=== PATIENT | female | born 1965 | race Caucasian/White ===

== ENCOUNTER → 2021-07-04 13:29 | Outpatient (REF) | payer OTHER, SELFPAY | LOC: HO.SL 13:29 | PROVIDERS: PCP Internal Medicine; Visit Provider Psychiatry & Neurology Neurology | DX: Z13.89 Encounter for screening for other disorder (principal) ==

== ENCOUNTER → 2021-08-01 09:44 | Outpatient (BNVA) | payer OTHER, SELFPAY | PROVIDERS: PCP Internal Medicine; Visit Provider Psychiatry & Neurology Neurology | DX: G44.309 Post-traumatic headache, unspecified, not intractable (principal); G47.9 Sleep disorder, unspecified | CPT/HCPCS: 99212 ==

== ENCOUNTER → 2021-09-26 13:46 | Outpatient (BNVA) | payer OTHER, SELFPAY | PROVIDERS: PCP Internal Medicine; Visit Provider Psychiatry & Neurology Neurology | DX: F07.81 Postconcussional syndrome (principal); G43.909 Migraine, unspecified, not intractable, without status migrainosus; G47.19 Other hypersomnia; R06.83 Snoring | CPT/HCPCS: 99212 ==

== ENCOUNTER → 2021-11-16 10:52 | Outpatient (REF) | payer OTHER, SELFPAY | LOC: HO.SL 10:52 | PROVIDERS: PCP Internal Medicine; Visit Provider Psychiatry & Neurology Neurology | DX: G47.33 Obstructive sleep apnea (adult) (pediatric) (principal); G47.00 Insomnia, unspecified; G47.19 Other hypersomnia; R06.83 Snoring | CPT/HCPCS: 95806 ==

== ENCOUNTER 2021-12-20 09:48 | Outpatient (REF) | payer OTHER, SELFPAY ==
[2021-12-20 10:42] LABS: COVID-19 Test Positive (Negative); IDNOW Serial# 16C4AD1C
== END 2021-12-20 09:49 | disposition home or self-care (01) ==
LOC: HO.LAB 09:48
PROVIDERS: Visit Provider Internal Medicine
DX: Z20.822 Contact with and (suspected) exposure to COVID-19 (principal)
CPT/HCPCS: 87635; C9803

== ENCOUNTER 2021-12-28 07:41 | Outpatient (REF) | payer OTHER, SELFPAY ==
[2021-12-28 08:14] LABS: COVID-19 Test Positive (Negative); IDNOW Serial# 08D9AD1C
== END 2021-12-28 07:42 | disposition home or self-care (01) ==
LOC: HO.LAB 07:41
PROVIDERS: Visit Provider Internal Medicine
DX: Z20.822 Contact with and (suspected) exposure to COVID-19 (principal)
CPT/HCPCS: 87635; C9803

== ENCOUNTER 2022-01-10 13:01 | Outpatient (REF) | payer OTHER, SELFPAY ==
[2022-01-10 13:32] LABS: COVID-19 Test Negative (Negative); IDNOW Serial# 08D9AD1C
== END 2022-01-10 13:02 | disposition home or self-care (01) ==
LOC: HO.LAB 13:01
PROVIDERS: Visit Provider Internal Medicine
DX: Z20.822 Contact with and (suspected) exposure to COVID-19 (principal)
CPT/HCPCS: 87635; C9803

== ENCOUNTER → 2022-01-23 13:53 | Outpatient (BNVA) | payer OTHER, SELFPAY | PROVIDERS: PCP Internal Medicine; Visit Provider Nurse Practitioner Family | DX: G47.19 Other hypersomnia (principal); G47.33 Obstructive sleep apnea (adult) (pediatric) | CPT/HCPCS: 99212 ==

== ENCOUNTER 2022-02-06 07:53 | Outpatient (REF) | payer OTHER, SELFPAY ==
[2022-02-06 08:44] LABS: COVID-19 Test Negative (Negative)
== END 2022-02-06 07:54 | disposition home or self-care (01) ==
LOC: HO.LAB 07:53
PROVIDERS: Visit Provider Internal Medicine
DX: Z20.822 Contact with and (suspected) exposure to COVID-19 (principal)
CPT/HCPCS: 87635; C9803

== ENCOUNTER 2022-02-13 07:36 | Outpatient (REF) | payer OTHER, SELFPAY ==
[2022-02-13 08:09] LABS: COVID-19 Test Negative (Negative); IDNOW Serial# 16C4AD1C
== END 2022-02-13 07:37 | disposition home or self-care (01) ==
LOC: HO.LAB 07:36
PROVIDERS: Visit Provider Internal Medicine
DX: Z20.822 Contact with and (suspected) exposure to COVID-19 (principal)
CPT/HCPCS: 87635; C9803

== ENCOUNTER 2022-07-20 12:05 | Outpatient (REF) | payer OTHER, SELFPAY ==
[2022-07-20 12:37] LABS: COVID-19 Test Negative (Negative); IDNOW Serial# 16C4AD1C
== END 2022-07-20 12:06 | disposition home or self-care (01) ==
LOC: HO.LAB 12:05
PROVIDERS: Visit Provider Internal Medicine
DX: Z20.822 Contact with and (suspected) exposure to COVID-19 (principal)
CPT/HCPCS: 87635; C9803

== ENCOUNTER → 2022-07-26 13:13 | Outpatient (BNVA) | payer OTHER, SELFPAY | PROVIDERS: PCP Internal Medicine; Visit Provider Nurse Practitioner Family | DX: G47.33 Obstructive sleep apnea (adult) (pediatric) (principal); G47.19 Other hypersomnia | CPT/HCPCS: 99212 ==

== ENCOUNTER → 2022-10-25 13:52 | Outpatient (BNVA) | payer OTHER, SELFPAY | PROVIDERS: PCP Internal Medicine; Visit Provider Nurse Practitioner Family | DX: G47.33 Obstructive sleep apnea (adult) (pediatric) (principal); Z99.89 Dependence on other enabling machines and devices | CPT/HCPCS: 99212 ==

== ENCOUNTER 2024-03-06 12:38 | Outpatient (AMB) | payer OTHER, SELFPAY ==
--- NOTE | 2024-03-06 12:41 | A.OFFVIS_ITS ---
Vital Signs 03/06/24 12:45 Height 4 ft 11 in Weight 165 lb 4 oz BMI 33.4 BP 148/90 H Blood Pressure Location Rt brachial Position Sitting Respiration 16 Pulse 87 Pulse Source Pulse Oximeter Pulse Oximetry (%) 98 Oxygen Delivery Method Room Air Intake Visit Reasons: 1yr follow up sleep Intake Note: Pt presents for a 6 month follow up for JERONIMO. Networking Administrator Required: No Allergies No Known Allergies Allergy (Verified 03/06/24 12:41) HPI Comments Details: 58 y/o female patient presents for follow up of JERONIMO on CPAP. . Pt is on APAP [id number]. I was unable to obtain her complaince report today She says she is compliant and feel good She sleeps well with CPAP, wakes up refreshed. Pt states that she has more energy during the day. [facility] Medical History Head injury Post concussion syndrome Shortness of breath Diabetes Asthma delivery delivered Surgical History Hx of hernia repair H/O colonoscopy Family History Father HTN (hypertension) Mother CAD (coronary artery disease) Diabetes mellitus Cancer Family/Other Diabetes mellitus Thyroid disease Social History Alcohol intake: never Patient Tobacco Use Status: Never used Tobacco Physical Exam Vital Signs: Last Vital Signs Pulse 87 03/06/24 12:45 Resp 16 03/06/24 12:45 BP 148/90 H 03/06/24 12:45 Pulse Ox 98 03/06/24 12:45 Oxygen Delivery Method Room Air 03/06/24 12:45 BMI result Body Mass Index 33.4 Const General: cooperative, healthy appearing, comfortable and no acute distress Nutritional Appearance: average body habitus Orientation/consciousness: patient oriented x3 Eyes Pupils: Equal, round and reactive pupils present Neck Neck: Yes no meningeal signs Neuro General: patient oriented x3, gait normal, tone normal, moves all extremities, no meningeal signs, no focal motor deficits and CN's II-XI intact bilaterally Cranial nerves: Yes CN's II-XII intact bilaterally and Yes Equal, round and reactive pupils present Cognition (Neuro): normal cognition Gait exam (Neuro): Normal gait present Assessment & Plan Assessment & Plan (1) JERONIMO (obstructive sleep apnea): Comment: Mild degree of JERONIMO, the AHI was 7/hr, and oxygen lake was 83%. Code(s): G47.33 - Obstructive sleep apnea (adult) (pediatric) Category: Medical Plan Advised patient to continue to use APAP [id number] . compliance stressed She will call home care company about her therapy results. Coding Level of Care Code Est Pt Level 3 (53974) Diagnoses JERONIMO (obstructive sleep apnea) G47.33
[2024-03-06 12:45] VITALS: BP 148/90; PULSE 87; RESP 16; O2SAT 98; BMI 33.4
== END 2024-03-06 13:20 | disposition home or self-care (01) ==
PROVIDERS: Absent Provider Psychiatry & Neurology Neurology; Visit Provider Psychiatry & Neurology Neurology
DX: G47.33 Obstructive sleep apnea (adult) (pediatric) (principal)
CPT/HCPCS: 99213

== ENCOUNTER → 2024-03-06 12:38 | Outpatient (BNVA) | payer OTHER, SELFPAY | PROVIDERS: Absent Provider Psychiatry & Neurology Neurology; Visit Provider Psychiatry & Neurology Neurology | DX: G47.33 Obstructive sleep apnea (adult) (pediatric) (principal); Z99.89 Dependence on other enabling machines and devices | CPT/HCPCS: 99212 ==

== ENCOUNTER 2024-06-26 08:30 | Outpatient (REF) | payer OTHER, SELFPAY ==
--- OUTSIDE RECORDS SUMMARY | 2024-06-26 08:41 | XMS_ITS | Continuity of Care Document ---
Author Organization [facility] Adult [facility] Address [address] [place] [address]- Care Team Providers Care Records And Tape Recordings Engineer Name Role Phone Jackie Barnes DO Primary Care Physician [phone] Encounter [facility] Date(s): 05/26/24 - 06/25/24 [facility] [address] [place], [place] [phone] Encounter Type: Triage Allergies, Adverse Reactions, Alerts Substance Criticality Severity Reaction Reaction Severity Status Keflex lost her voice Activ e gadolinium containing compounds rash, shorttness of breath, Active Bee Stings Anaphylaxis Active Contrast Dye SOB, difficulty breathing Active Glutens Active Immunizations Given and Recorded Vaccine Date Status Refusal Reason influenza virus vaccine, inactivated 04/18/22 Give n influenza virus vaccine, inactivated 05/02/17 Give n influenza virus vaccine, inactivated 08/11/16 Give n influenza virus vaccine, inactivated 05/14/15 Give n influenza virus vaccine, inactivated 1 05/16/13 [facility] [place] influenza virus vaccine, inactivated 2 06/24/10 [facility] [place] SARS-CoV-2 (COVID-19) mRNA BNT-162b2 vac 08/02/21 Given SARS-CoV-2 (COVID-19) mRNA BNT-162b2 vac 12/05/20 Recorded SARS-CoV-2 (COVID-19) mRNA BNT-162b2 vac 11/01/20 Recorded tetanus/diphtheria/pertussis, acel(Tdap) 03/05/17 Given influ virus vac, H1N1, inactive(oldterm) 3 06/07/09 Given FluLaval (oldterm) 4 04/13/09 Given Pneumococcal Poly (PPV23) (oldterm) 5 04/08/08 Giv en Tet/Diphth/Acel, Pertussis (oldterm) 6 08/28/07 [facility] [place] Influenza Virus Vaccine (oldterm) 7 05/25/06 Given 1Admin Note: vis given 01/31/2013 2Admin Note: vis given vis date 02/15/2010 3Admin Note: VIS 04/09/09 4Admin Note: VIS GIVEN VIS DATE 02/16/09 5Admin Note: VIS given in Syrian 6Admin Note: VIS given in montserratian. Mfg = Sanofi Pasteur 7Admin Note: VIS GIVEN Medications Albuterol (Eqv-Ventolin HFA) 90 mcg/inh inhalation aerosol 2 puffs, Inhalation, Every 6 hours, every 6 hours as needed. Please use Symbicort as maintenance therapy and for symptom relief to decrease use of albuterol, # 8 Gm, 1 Refills, Maintenance, 06/09/24 3:43:00 PM EST, [facility]/pharmacy #[id number], Partial fill upon patient request if the prescription is for a schedule II opioid drug., 2 puffs Inhalation Every 6 hours,Instr:every 6 hours as needed. Please use Symbicort as maintenance therapy and for symptom relief to decrease use of albuterol, 150, cm, 06/03/24 15:31:00 EST, Height, 76.5, kg, 05/29/23 10:47:00 EST, Dry Weight Start Date: 06/09/24 Status: Ordered Quantity: 8.0 Unit: g Repeat number: 2 atorvastatin 40 mg oral tablet See Instructions, TOME 1 TABLETA POR VIA ORAL TODOS [place] AL ACOSTARSE, # 90 tablet, 2 Refills, Maintenance, 05/27/24 1:34:00 PM EST, [facility] STORE [id number], 150, cm, 03/22/24 12:05:00 EDT, Height, 76.5,kg, 05/29/23 10:47:00 EST, Dry Weight Start Date: 05/27/24 Status: Ordered Quantity: 90.0 Unit: tablet Repeat number: 1 CPAP Machine See Instructions, # 1 each, Maintenance, 1. Patient should be started on AutoCPAP 5-20 cm H2O with compliance data followed. faxed to Kristy, 06/09/24 3:12:00 PM EST, Supply Start Date: 06/09/24 Status: Ordered Quantity: 1.0 Unit: each Repeat number: 1 dapagliflozin 10 mg oral tablet 1 tablet = 10 mg, By Mouth, Daily, # 90 tablet, 3 Refills, Maintenance, 01/30/24 2:39:00 PM EDT, Tablet, [id number], Partial fill upon patient request if the prescription is for a schedule II opioid drug., 150, cm, 01/30/24 14:20:00 EDT, Height, 76.5, kg, 05/29/23 10:47:00 EST, Dry Weight Start Date: 01/30/24 Status: Ordered Quantity: 90.0 Unit: tablet Repeat number: 4 disposable bed pads disposable bed pads, See Instructions, # 120 each, Refills 11, Tot. Refills 11, Maintenance, 4 per day mixed incontinence n39.46, 02/21/24 12:51:00 PM EDT, Supply Start Date: 02/21/24 Status: Ordered Quantity: 120.0 Unit: each Repeat number: 12 duloxetine 60 mg oral enteric coated capsule 1 capsule = 60 mg, By Mouth, Daily, # 30 capsule, 5 Refills, Maintenance, 02/05/24 11:53:00 AM EDT, EC Capsule, [id number], Partial fill upon patient request if the prescription is for a schedule II opioid drug., 150, cm, 01/30/24 14:20:00 EDT, Height, 76.5, kg, 05/29/23 10:47:00 EST, Dry Weight Start Date: 02/05/24 Status: Ordered Quantity: 30.0 Unit: capsule Repeat number: 6 Estrace Vaginal Cream 0.1 mg/g = 1 Gm, Vaginally, Daily at bedtime, Take every night for 14 days and then switch to taking once ortwice a week., # 42.5 Gm, 5 Refills, Maintenance, 06/04/23 3:55:00 PM EST, [id number], Partial fill upon patient request if the prescription is for a schedule II opioid drug., 150, cm, 06/04/23 15:00:00 EST, Height, 76.5, kg, 05/29/23 10:47:00 EST, Dry Weight Start Date: 06/04/23 Status: Ordered Quantity: 42.5 Unit: g Repeat number: 6 humidifier humidifier, See Instructions, # 1 each, Refills 0, Tot. Refills 0, Maintenance, asthma, bronchitis j44.9 j20.9, 06/16/24 4:02:00 PM EST, Supply Start Date: 06/16/24 Status: Ordered Quantity: 1.0 Unit: each Repeat number: 1 incontinence wipes incontinence wipes, See Instructions, # 2 each, Refills 11, Tot. Refills 11, Maintenance, 2 boxes per month mixed incontinence n39.46, 02/21/24 12:50:00 PM EDT, Supply Start Date: 02/21/24 Status: Ordered Quantity: 2.0 Unit: each Repeat number: 12 large incontinence liners /poise pads large incontinence liners /poise pads, See Instructions, # 180 each, Refills 11, Tot. Refills 11, Maintenance, mixed incontinence n39.46, 02/21/24 12:50:00 PM EDT, Supply Start Date: 02/21/24 Status: Ordered Quantity: 180.0 Unit: each Repeat number: 12 losartan 50 mg oral tablet 50 mg, 1, tablet, By Mouth, Daily, # 90 tablet, Refills 3, Tot. Refills 3, Maintenance, 06/09/24 11:27:00 AM EST, Route to Pharmacy Electronically, [facility]/pharmacy #[id number], Partial fill upon patient request if the prescription is for a schedule II opioid drug., 150, cm, 06/03/24 15:31:00 EST, Height, 76.5, kg, 05/29/23 10:47:00 EST, Dry Weight Start Date: 06/09/24 Status: Ordered Quantity: 90.0 Unit: tablet Repeat number: 4 metFORMIN 1000 mg oral tablet See Instructions, TOME 1 TABLETA POR VIA ORAL DOS VECES AL BRANDI, # 180 tablet, 1 Refills, Maintenance, 06/17/24 8:09:00 AM EST, [facility] STORE [id number], 150, cm, 06/16/24 14:27:00 EST, Height, 76.5, kg, 05/29/23 10:47:00 EST, Dry Weight Start Date: 06/17/24 Status: Ordered Quantity: 180.0 Unit: tablet Repeat number: 1 MiraLax oral powder for reconstitution = 17 Gm, By Mouth, Daily, dissolve in 4 to 8 oz of beverage, # 255 Gm, 5 Refills, Acute 06/09/25 11:29:00 AM EST, 06/09/24 11:29:00 AM EST, REC Powder, [facility]/pharmacy #[id number], Partial fill upon patient request if the prescription is for a schedule II opioid drug., 17 Gm By Mouth Daily,Instr:dissolve in 4to 8 oz of beverage, 150, cm, 06/03/24 15:31:00 EST, Height, 76.5, kg, 05/29/23 10:47:00 EST, Dry Weight Start Date: 06/09/24 Stop Date: 06/09/25 Status: Ordered Quantity: 255.0 Unit: g Repeat number: 6 Symbicort 160mcg/4.5mcg Inhaler 2, puffs, Inhalation, 2 times a day, Refills 0, Maintenance, 06/07/23 1:50:00 PM EST, Aerosol Start Date: 06/07/23 Status: Ordered Repeat number: 1 Symbicort 160mcg/4.5mcg Inhaler 2, puffs, Inhalation, 2 times a day, PRN, # 10.2 Gm, Refills 5, Tot. Refills 5, Maintenance, 05/22/24 10:41:00 AM EST, Route to Pharmacy Electronically, [id number], [facility]/pharmacy #[id number], 150, cm, 03/22/24 12:05:00 EDT, Height, 76.5, kg, 05/29/23 10:47:00 EST, Dry Weight Start Date: 05/22/24 Status: Ordered Quantity: 10.2 Unit: g Repeat number: 6 tirzepatide 2.5 mg/0.5 mL subcutaneous solution = 2.5 mg, Subcutaneous Injection, Every week, rotate injection sites, # 4 each, 2 Refills, Maintenance, 01/30/24 2:26:00 PM EDT, Solution, [facility]/pharmacy #[id number], Partial fill upon patient request if the prescription is for a schedule II opioid drug., 150, cm, 01/30/24 14:20:00 EDT, Height, 76.5, kg, 05/29/23 10:47:00 EST, Dry Weight Start Date: 01/30/24 Status: Ordered Quantity: 4.0 Unit: each Repeat number: 3 Problem List Condition Confirmation Course Effective Dates Status Health Status Informant Abdominal bloating 1 Confirmed Active Abnormal uterine bleeding Confirmed Active Asthma - Mild Persistent Confirmed 10/18/11 Active Chest pain Confirmed Active Chronic pelvic pain in female 2 Confirmed Active Depression Confirmed Active Diabetes mellitus type 2. Confirmed Active Hx of colonic polyps Confirmed Active Hypertension Confirmed Active Mixed incontinence Confirmed Active Microcalcification of left breast on mammogram 3 Confirmed Active Moderate asthma Confirmed Active *[facility]/Environmental Health Officer-Melida Isaac-[phone]/Health nursing home, active care coordination Confirmed Active Severe obesity (BMI 35.0-39.9) with comorbidity Confirmed Active Trigger finger of left thumb Confirmed Active Varicose veins 4 Confirmed Active 1Symptoms started right after D&C on 02/2023 2Symptoms started right after D&C on 02/2023 3S/p biopsy on 04/27/23- 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 Note in chart. Will treat conservatively with compression stockings for now. Social History Social History Type Response Smoking Status Never smoker entered on: 01/15/14 Sex Sex Representation Female (finding) Patient Care team information Care Team Personnel Name: Jackie Barnes DO Position: [facility] Resident Member Role: PCP Address: [address] [place] [address] Telecom: Name: Michell Medellin RN Position: [facility] ED RN W/OE and Tasks Member Role: Primary Care Nurse Care Team Related Persons Name: HERMNA DANIEL Name: AGAPITO TOLENTINO Name: KARTIK WAN Insurance Providers Guarantor name: JEFFREY ANDERSON [facility] Information #: 1 Payer: [facility] CARE ALLIANCE/ONE CARE Member Number: NA Policy Number: NA Group Number: NA
--- OUTSIDE RECORDS SUMMARY | 2024-06-26 08:41 | XMS_ITS | Continuity of Care Document ---
Author Organization [facility] Adult Medicine Address [address] [place] [address]- Care Team Providers Care Clinical Unit Educator Name Role Phone Jackie Barnes DO Primary Care Physician [phone] Encounter [facility] Date(s): 05/22/24 - 06/21/24 [facility] Adult Medicine [address] [place], [place] [phone] Encounter Type: Triage Allergies, Adverse Reactions, Alerts Substance Criticality Severity Reaction Reaction Severity Status Keflex lost her voice Activ e Bee Stings Anaphylaxis Active gadolinium containing compounds rash, shorttness of breath, Active Contrast Dye SOB, difficulty breathing Active [...] DATE 02/16/09 5Admin Note: VIS given in Cameroonian 6Admin Note: VIS given in liberian. Mfg = Sanofi Pasteur 7Admin Note: VIS GIVEN Medications Albuterol (Eqv-Ventolin HFA) 90 mcg/inh inhalation aerosol 2 puffs, Inhalation, Every 6 hours, every 6 hours as needed. Please use Symbicort as maintenance therapy and for symptom relief to decrease use of albuterol, # 8 Gm, 1 Refills, Maintenance, 06/09/24 3:43:00 PM EST, [facility]/pharmacy #[id number], Partial fill upon patient request [...] 2 Refills, Maintenance, 05/27/24 1:34:00 PM EST, [facility] STORE [id number], 150, cm, 03/22/24 12:05:00 EDT, Height, 76.5,kg, 05/29/23 10:47:00 EST, Dry Weight Start Date: 05/27/24 Status: Ordered Quantity: 90.0 Unit: tablet Repeat number: 1 benzonatate 100 mg oral capsule 1 capsule = 100 mg, By Mouth, 3 times a day, for 7 days, for cough, # 21 capsule, 0 Refills, Acute 06/23/24 3:04:00 PM EST, 06/16/24 3:04:00 PM EST, [id number], Partial fill upon patient request if the prescription is for a schedule II opioid drug., 150, cm, 06/16/24 14:27:00 EST, Height, 76.5, kg, 05/29/23 10:47:00 EST, Dry Weight Start Date: 06/16/24 Stop Date: 06/23/24 Status: Ordered Quantity: 21.0 Unit: capsule Repeat number: 1 CPAP Machine See Instructions, # 1 each, Maintenance, 1. Patient should be started on AutoCPAP 5-20 cm H2O with compliance data followed. faxed to [facility], 06/09/24 3:12:00 PM EST, Supply Start Date: [...] 5 Refills, Maintenance, 06/04/23 3:55:00 PM EST, [facility]/pharmacy #[id number], Partial fill upon patient request [...] 11:27:00 AM EST, Route to Pharmacy Electronically, [facility]/pharmacy #[id number], Partial fill upon patient request [...] 1 Refills, Maintenance, 06/17/24 8:09:00 AM EST, [facility] STORE [id number], 150, cm, 06/16/24 14:27:00 EST, Height, 76.5, kg, 05/29/23 10:47:00 EST, Dry Weight Start Date: 06/17/24 Status: Ordered Quantity: 180.0 Unit: tablet Repeat number: 1 MiraLax oral powder for reconstitution = 17 Gm, By Mouth, Daily, dissolve in 4 to 8 oz of beverage, # 255 Gm, 5 Refills, Acute 06/09/25 11:29:00 AM EST, 06/09/24 11:29:00 AM EST, REC Powder, [id number] Partial fill upon patient request if [...] 10:41:00 AM EST, Route to Pharmacy Electronically, [id number], [id number], 150, cm, 03/22/24 12:05:00 EDT, Height, 76.5, kg, 05/29/23 10:47:00 EST, Dry Weight Start Date: 05/22/24 Status: Ordered Quantity: 10.2 Unit: g Repeat number: 6 tirzepatide 2.5 mg/0.5 mL subcutaneous solution = 2.5 mg, Subcutaneous Injection, Every week, rotate injection sites, # 4 each, 2 Refills, Maintenance, 01/30/24 2:26:00 PM EDT, Solution, [id number], Partial fill upon patient request [...] 3 Confirmed Active Moderate asthma Confirmed Active *[facility]/Chopping Machine Operator-Melida Isaac-[phone] [facility]/Health residential, active care coordination Confirmed Active Severe obesity [...] Team Personnel Name: Jackie Barnes DO Position: [facility] Resident Member Role: PCP Address: [address] [place] [address] [place] [address]- Telecom: Name: Michell Medellin RN Position: [facility] ED RN W/OE and Tasks Member Role: Primary Care Nurse Care Team Related Persons Name: MARÍA HERMAN Name: AGAPITO TOLENTINO Name: KARTIK WAN Insurance Providers Guarantor name: [facility] Information #: 1 Payer: [facility] CARE ALLIANCE/[facility] Member Number: NA Policy Number: NA Group Number: NA
== END 2024-06-26 08:31 | disposition home or self-care (01) ==
LOC: HO.SH 08:30
PROVIDERS: Visit Provider Physician Assistant Medical
DX: Z01.118 Encounter for examination of ears and hearing with other abnormal findings (principal); H90.3 Sensorineural hearing loss, bilateral
CPT/HCPCS: 92557; 92567